=== PATIENT | female | born 1985 | race Native Hawaiian/Other Pacific Islander ===

== ENCOUNTER 2018-02-06 18:59 | Emergency (ER) | payer OTHER ==
[~2018-02-06] VITALS: Ht 177.8 cm; Wt 81.6 kg
[2018-02-06 20:00] LABS: PLATELET COUNT 378 K/uL (152-353)
[2018-02-06 20:12] LABS: POTASSIUM 3.7 mmol/L (3.6-5.2)
[2018-02-06 20:27] VITALS: BP 117/69; TEMP 98.2
== END 2018-02-06 20:29 | disposition home or self-care (01) ==
LOC: ED 18:59
DX: L02.413 Cutaneous abscess of right upper limb (principal); L03.113 Cellulitis of right upper limb
CPT/HCPCS: 36415; 80053; 80307; 81000; 85027; 99283

== ENCOUNTER 2018-04-02 07:26 | Emergency (ER) | payer OTHER ==
[~2018-04-02] VITALS: Ht 175.3 cm; Wt 87.5 kg
[2018-04-02 07:29] VITALS: TEMP 97.9
[2018-04-02 08:44] VITALS: BP 112/71
== END 2018-04-02 08:44 | disposition home or self-care (01) ==
LOC: ED 07:26
DX: J06.9 Acute upper respiratory infection, unspecified (principal); R05 Cough; F17.210 Nicotine dependence, cigarettes, uncomplicated; Z72.0 Tobacco use
CPT/HCPCS: 99283

== ENCOUNTER 2018-09-23 12:20 | Outpatient (CLI) | payer OTHER | END 2018-09-23 12:24 | disposition short-term general hospital (02) | LOC: AMB 12:20 | DX: M25.511 Pain in right shoulder (principal); M54.2 Cervicalgia; V49.3XXA Car occupant (driver) (passenger) injured in unspecified nontraffic accident, initial encounter; Y93.89 Activity, other specified; Y92.89 Other specified places as the place of occurrence of the external cause | CPT/HCPCS: A0425; A0427 ==

== ENCOUNTER 2018-09-23 12:28 | Emergency (ER) | payer OTHER ==
[~2018-09-23] VITALS: Ht 175.3 cm; Wt 87.5 kg
[2018-09-23 14:21] LABS: POTASSIUM 3.6 mmol/L (3.6-5.2)
[2018-09-23 15:15] LABS: PLATELET COUNT 261 K/uL (152-353)
[2018-09-23 21:15] VITALS: BP 125/75; TEMP 97.9
== END 2018-09-23 21:15 | disposition home or self-care (01) ==
LOC: ED 12:28
PROVIDERS: Family Medicine
PROC: 0HQGXZZ Repair Left Hand Skin, External Approach (ICD-10-PCS; principal; 2018-09-23)
DX: S61.412A Laceration without foreign body of left hand, initial encounter (principal); N20.0 Calculus of kidney; V48.0XXA Car driver injured in noncollision transport accident in nontraffic accident, initial encounter; Y92.89 Other specified places as the place of occurrence of the external cause
CPT/HCPCS: 36415; 80053; 80320; 85027; 96372; 96374; 99284; J1885; J2060; J7040

== ENCOUNTER 2018-09-30 13:11 | Emergency (ER) | payer OTHER ==
[~2018-09-30] VITALS: Ht 175.3 cm; Wt 99.8 kg
[2018-09-30 13:18] VITALS: TEMP 98.6
[2018-09-30 14:03] VITALS: BP 120/70
== END 2018-09-30 14:03 | disposition home or self-care (01) ==
LOC: ED 13:11
DX: Z48.02 Encounter for removal of sutures (principal)

== ENCOUNTER 2019-06-02 10:09 | Emergency (ER) | payer OTHER ==
[~2019-06-02] VITALS: Ht 175.3 cm; Wt 95.3 kg
[2019-06-02 10:15] VITALS: TEMP 97.5
[2019-06-02 11:11] VITALS: BP 143/86
== END 2019-06-02 11:16 | disposition home or self-care (01) ==
LOC: ED 10:09
PROC: 0W933ZZ Drainage of Oral Cavity and Throat, Percutaneous Approach (ICD-10-PCS; principal; 2019-06-02)
PROC: 3E0T3BZ Introduction of Anesthetic Agent into Peripheral Nerves and Plexi, Percutaneous Approach (ICD-10-PCS; 2019-06-02)
DX: K04.7 Periapical abscess without sinus (principal); F17.210 Nicotine dependence, cigarettes, uncomplicated
CPT/HCPCS: 99282; J3490

== ENCOUNTER 2019-09-24 12:50 | Emergency (ER) | payer OTHER ==
[~2019-09-24] VITALS: Ht 175.3 cm; Wt 95.3 kg
[2019-09-24 14:20] VITALS: BP 132/88; TEMP 98.2
== END 2019-09-24 14:22 | disposition home or self-care (01) ==
LOC: ED 12:50
DX: K08.89 Other specified disorders of teeth and supporting structures (principal); F17.210 Nicotine dependence, cigarettes, uncomplicated
CPT/HCPCS: 99281

== ENCOUNTER 2021-12-06 12:35 | Emergency (ER) | payer OTHER ==
[~2021-12-06] VITALS: Ht 175.3 cm; Wt 95.3 kg
[2021-12-06 13:05] VITALS: BP 120/72; TEMP 97.2
== END 2021-12-06 14:06 | disposition home or self-care (01) ==
LOC: ED 12:35
DX: Z53.21 Procedure and treatment not carried out due to patient leaving prior to being seen by health care provider (principal)
CPT/HCPCS: 99281

== ENCOUNTER 2021-12-08 22:01 | Emergency (ER) | payer OTHER ==
[~2021-12-08] VITALS: Ht 175.3 cm; Wt 95.3 kg
[2021-12-08 22:48] LABS: PLATELET COUNT 385 K/uL (152-353)
[2021-12-08 22:59] LABS: POTASSIUM 3.9 mmol/L (3.6-5.2)
[2021-12-09 00:45] VITALS: BP 118/66; TEMP 97.8
== END 2021-12-09 00:50 | disposition home or self-care (01) ==
LOC: ED 22:01
PROVIDERS: Hospitalist
DX: R10.84 Generalized abdominal pain (principal); D27.0 Benign neoplasm of right ovary
CPT/HCPCS: 36415; 80053; 80307; 81000; 81025; 83690; 85027; 96374; 96375; 99284; J1885; J2405; Q9963

== ENCOUNTER 2022-06-09 02:43 | Emergency (ER) | payer OTHER ==
[~2022-06-09] VITALS: Ht 175.3 cm; Wt 113.4 kg
[2022-06-09 03:49] LABS: PLATELET COUNT 361 K/uL (152-353)
[2022-06-09 03:53] LABS: POTASSIUM 3.9 mmol/L (3.6-5.2)
[2022-06-09 07:15] VITALS: BP 126/75; TEMP 98
== END 2022-06-09 07:19 | disposition home or self-care (01) ==
LOC: ED 02:43
PROVIDERS: Family Medicine
DX: T43.651A Poisoning by methamphetamines accidental (unintentional), initial encounter (principal); J96.90 Respiratory failure, unspecified, unspecified whether with hypoxia or hypercapnia; X58.XXXA Exposure to other specified factors, initial encounter; Y92.89 Other specified places as the place of occurrence of the external cause
CPT/HCPCS: 36600; 80053; 80307; 81002; 82805; 85027; 93005; 99283; 99284; 99285

== ENCOUNTER 2022-09-26 11:31 | Emergency (ER) | payer OTHER ==
[~2022-09-26] VITALS: Ht 175.3 cm; Wt 108.9 kg
[2022-09-26 11:31] VITALS: TEMP 98.4
[2022-09-26 12:55] VITALS: BP 130/75
== END 2022-09-26 12:55 | disposition home or self-care (01) ==
LOC: ED 11:35
DX: S50.11XA Contusion of right forearm, initial encounter (principal); Y04.2XXA Assault by strike against or bumped into by another person, initial encounter; Y92.89 Other specified places as the place of occurrence of the external cause
CPT/HCPCS: 96372; 99283